=== PATIENT | male | born 1965 | race Caucasian/White ===

== ENCOUNTER 2022-07-24 18:39 | Emergency (ER) | payer OTHER, SELFPAY ==
--- NOTE | ~2022-07-24 | US_ITS ---
EXAMINATION: US VENOUS ULTRASOUND WITH DOPPLER LOWER EXTREMITY, RIGHT CLINICAL INFORMATION: Right lower extremity pain COMPARISON: None available. TECHNIQUE: Ultrasound of the deep veins is performed from the hip to the calf with compression sonography and color and pulse Doppler assessment. Spectral analysis with color-flow imaging is performed. FINDINGS: There is normal venous compression and respiratory variation and augmented flow. The visualized common femoral vein, superficial femoral vein, profunda femoral vein, popliteal vein, and the trifurcation region shows no evidence of deep venous thrombosis. There is no significant popliteal fossa cyst. Compressible superficial varicosities are seen on the ochoa. If the patient's symptoms persist, followup ultrasound in 5 days 7 days might be of value to exclude proximal propagation from a non-visualized calf vein. US/US venous duplex LE RT IMPRESSION: No DVT demonstrated in the right lower extremity.
[2022-07-24 19:53] VITALS: BP 153/81; PULSE 77; RESP 18; TEMP 36.6; O2SAT 97; BMI 32.8
--- NOTE | 2022-07-24 20:00 | ED.GENADULT ---
HPI - General Adult General Chief complaint: General Medical <Luis Schilling - Last Filed: 07/24/22 20:01> Stated complaint: Right leg swelling sent PC <Luis Schilling - Last Filed: 07/24/22 20:01> Time Seen by Provider: 07/25/22 00:09 <Luis Schilling - Last Filed: 07/24/22 20:01> Source: patient <Clemencia Jane NP - Last Filed: 07/25/22 00:24> Mode of arrival: ambulatory <Clemencia Jane NP - Last Filed: 07/25/22 00:24> Limitations: no limitations <Clemencia Jane NP - Last Filed: 07/25/22 00:24> History of Present Illness HPI narrative: 57-year-old male presents for anterior right lower extremity swelling and knee pain. States this occurred while he was exercising, and could not sleep because of the pain. <Clemencia Jane NP - Last Filed: 07/25/22 00:24> Onset (ago): day(s) (1) <Clemencia Jane NP - Last Filed: 07/25/22 00:24> Location: right and lower extremity <Clemencia Jane NP - Last Filed: 07/25/22 00:24> Radiation: non-radiation <Clemencia Jane NP - Last Filed: 07/25/22 00:24> Severity: mild <Clemencia Jane NP - Last Filed: 07/25/22 00:24> Severity scale (1-10): 4 <Clemencia Jane NP - Last Filed: 07/25/22 00:24> Quality: aching <Clemencia Jane NP - Last Filed: 07/25/22 00:24> Pain Consistency: constant <Clemencia Jane NP - Last Filed: 07/25/22 00:24> Relieving factors: rest <Clemencia Jane NP - Last Filed: 07/25/22 00:24> Exacerbating factors: movement and other (Palpation) <Clemencia Jane NP - Last Filed: 07/25/22 00:24> Associated symptoms: denies other symptoms <Clemencia Jane NP - Last Filed: 07/25/22 00:24> Treatments prior to arrival: none <Clemencia Jane NP - Last Filed: 07/25/22 00:24> Related Data Allergies/adverse reactions: Allergies Allergy/AdvReac Type Severity Reaction Status Date / Time No Known Allergies Allergy Verified 07/24/22 19:59 <Luis Schilling - Last Filed: 07/24/22 20:01> Review of Systems Review of Systems: Constitutional: No Fever, No Chills Cardiovascular: No Chest Pain, No SOB Respiratory: No Cough, No Dyspnea Musculoskeletal: positive right lower extremity pain, No Myalgias, No Joint Swelling Skin: No Skin lacerations, No rash Neuro: No Weakness, No Numbness, No Paresthesias <Clemencia Jane NP - Last Filed: 07/25/22 00:24> Yes all other systems are reviewed and are negative <Clemencia Jane NP - Last Filed: 07/25/22 00:24> [facility] Past Medical History Attestation statement: The following information was validated with the patient. <Clemencia Jane NP - Last Filed: 07/25/22 00:24> Source: old records reviewed <Clemencia Jane NP - Last Filed: 07/25/22 00:24> Social History Social History: Social History Advance Directives: No <Luis Schilling - Last Filed: 07/24/22 20:01> Physical Exam ED Vital Signs: Vital Signs - 24 hr 07/24/22 19:53 Temperature 97.9 F Pulse Rate 77 Respiratory Rate 18 Blood Pressure 153/81 H Pulse Oximetry 97 Oxygen Delivery Method Room Air BMI result Body Mass Index 32.8 <Luis Schilling - Last Filed: 07/24/22 20:01> Vital Signs - 24 hr 07/24/22 19:53 Temperature 97.9 F Pulse Rate 77 Respiratory Rate 18 Blood Pressure 153/81 H Pulse Oximetry 97 Oxygen Delivery Method Room Air BMI result Body Mass Index 32.8 <Clemencia Jane NP - Last Filed: 07/25/22 00:24> Appearance: Alert. Oriented X3. No acute distress. Eyes: Pupils equal, round and reactive to light. Neck: Normal inspection. Neck supple. CVS: Normal heart rate and rhythm. Pulses normal. Respiratory: No respiratory distress. Breath sounds normal. Skin: Skin warm and dry. Normal skin color. Normal skin turgor. Extremities: No lower extremity edema. Varicosity noted to the medial aspect of the lower right extremity. Negative Homans bilaterally. Gait balance and coordinated. Neuro: No motor deficit. No sensory deficit. Cranial nerves 2-12 intact <Clemencia Jane NP - Last Filed: 07/25/22 00:24> Course Course Course Narrative: 57-year-old male presents for evaluation of atraumatic right leg pain and swelling. He reports returning from [place] 2 weeks ago. His pain has been present for 3 weeks.. He reports that he started walking again last week. His pain started before his increase in exercise. His pain is mostly on the front of his right ochoa. He reports a history of varicose veins. Plan for ultrasound of the right lower extremity to evaluate for DVT especially given the recent flight <Luis Schilling - Last Filed: 07/24/22 20:01> 57-year-old male presents for evaluation of atraumatic right leg pain and swelling. He reports returning from [place] 2 weeks ago. His pain has been present for 3 weeks.. He reports that he started walking again last week. His pain started before his increase in exercise. His pain is mostly on the front of his right ochoa. He reports a history of varicose veins. Plan for ultrasound of the right lower extremity to evaluate for DVT especially given the recent flight 00:00 57-year-old male presents for right lower extremity swelling and pain. Provider in triage order duplex study which was negative for acute findings. Physical exam indicates bulging consistent with varicosity to right lower extremities. Also noted varicosities to the left medial aspect of the lower extremity. No edema noted. Patient is ambulatory. Patient does have follow-up with his primary care physician as well as a vein clinic physician. Patient was encouraged to keep these appointments supportive measures with Tylenol and Motrin. Patient verbalized understanding of discharge instructions. Verbalized understandings of signs and symptoms indicating need for emergent intervention. <Clemencia Jane NP - Last Filed: 07/25/22 00:24> Medical Decision Making Differential Diagnosis Differential Diagnoses: The differential diagnosis associated with the presentation includes <LISA Lowe Last Filed: 07/25/22 00:24> DVT, cellulitis, paresthetica meralgia, varicosity, hematoma <Clemencia Jane NP - Last Filed: 07/25/22 00:24> Independent Interpretation I performed an independent interpretation of an: Ultrasound <Clemencia Jane NP - Last Filed: 07/25/22 00:24> Radiology Impression Discussion of test interpretation with radiology: I have reviewed the radiologist's reading. <LISA Lowe Last Filed: 07/25/22 00:24> Radiologist Impression: TECHNIQUE: Ultrasound of the deep veins is performed from the hip to the calf with compression sonography and color and pulse Doppler assessment. Spectral analysis with color-flow imaging is performed. FINDINGS: There is normal venous compression and respiratory variation and augmented flow. The visualized common femoral vein, superficial femoral vein, profunda femoral vein, popliteal vein, and the trifurcation region shows no evidence of deep venous thrombosis. ? There is no significant popliteal fossa cyst. Compressible superficial varicosities are seen on the ochoa. If the patient's symptoms persist, followup ultrasound in 5 days 7 days might be of value to exclude proximal propagation from a non-visualized calf vein. US/US venous duplex LE RT IMPRESSION: No DVT demonstrated in the right lower extremity. <Clemencia Jane NP - Last Filed: 07/25/22 00:24> External Record Review Patient has no prior records at this facility <LISA Lowe Last Filed: 07/25/22 00:24> Prescription Management I considered prescription management with: Pain Medication <Clemencia Jane NP - Last Filed: 07/25/22 00:24> Chronic Conditions Patient?s care impacted by: Diabetes and Hypertension <Clemencia Jane NP - Last Filed: 07/25/22 00:24> Discharge Plan Discharge Clinical Impression: Varicose veins of bilateral lower extremities with pain <Luis Schilling - Last Filed: 07/24/22 20:01> Patient Disposition: Home, Self-Care <Luis Schilling - Last Filed: 07/24/22 20:01> Instructions: Leg Pain (ED) <Luis Herrmann Filed: 07/24/22 20:01> Additional Instructions: You were evaluated for leg pain. DVT study is negative. Physical exam is consistent with varicose veins. Please keep your appointment with your vein clinic physician for evaluation. Follow-up with primary care physician as scheduled. Alternate Tylenol 650 mg every 6 hours and Motrin 600 mg every 6 hours as needed for pain and fever management. Consider taking these medications 3 hours apart so you have pain and fever management every 3 hours. Write down what time you take these medications to prevent accidental overdose. Motrin is the same medication as Advil and ibuprofen. Tylenol is the same medication as acetaminophen. Thank you for choosing this emergency department for evaluation. Please follow-up with primary care physician as needed. Return to the emergency department for any new, concerning, or worsening symptoms. <Luis Schilling - Last Filed: 07/24/22 20:01> Referrals: Albaro Thurston MD [Primary Care Provider] - 2 weeks (Varicose vein, leg pain) <Luis Schilling - Last Filed: 07/24/22 20:01>
--- OUTSIDE RECORDS SUMMARY | 2022-07-25 00:06 | XMS_ITS | Continuity of Care Document ---
:1965 Author Organization [facility] Address [address] [place] [id number]- Care Team Providers Name Role Phone Daryl KNAPP, Justus S Primary Care Physician Encounter [facility] Date(s): 04/19/19 - 04/19/[address] [address]- [facility] Attending Physician: Bertrand KNAPP, Lexis Erwin Allergies, Adverse Reactions, Alerts Substance Reaction Severity Status Bee Stings Active Medications aspirin 81 mg oral delayed release tablet 81 mg, By Mouth, Daily, # 30 tablet, Refills 0, Tot. Refills 0, Maintenance, 03/19/16 8:00:19, [facility] Electronically, [id number], [facility] Start Date: 03/19/16 Status: Orderedatorvastatin 20 mg oral tablet 1 tablet = 20 mg, By Mouth, Daily, # 30 tablet, 0 Refills, Maintenance, Tablet Start Date: 03/18/16 Status: OrderedmetFORMIN 1000 mg oral tablet 1 tablet = 1,000 mg, By Mouth, 2 times a day, 0 Refills, Maintenance, 03/17/16 17:30:32 Start Date: 03/17/16 Status: Ordered
--- OUTSIDE RECORDS SUMMARY | 2022-07-25 00:06 | XMS_ITS ---
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 505303294 (current) use of insulin Problem Male erectile N52.9 Active 190178 002 dysfunction, unspecified Problem Type 2 diabetes E11.9 Active 3134 55460 mellitus without complications Problem Right lower R10.31 Active 78138790 2 quadrant pain Problem Body mass index Z68.35 Active 4433 32644153795 (BMI) 35.0-35.9, adult 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 Problem Body mass index Z68.33 Active 4433 01894132831 (BMI) 33.0-33.9, adult Problem Body mass index Z68.32 Active 4433 03143401898 (BMI) 32.0-32.9, adult ALLERGIES No Known Allergies ENCOUNTERS Encounter Location Date Diagnosis [address] Mar, [place] [address] Feb, [place], [place] [address] Jan, Acute ri ght-sided low back PC RENEE Panda pain without sci atica M54.50 ; Type 2 diabetes mellitus without complications E1 1.9 ; senior care (current) u se of insulin Z79.4 an d Primary hypertension I10 [address] Jan, [place] [facility] [address] [facility] September, [place], [place] [address] September, Type 2 d iabetes mellitus [place] with unspecified complications E1 1.8 and Essential (prima ry) hypertension I10 [address] Aug, 2021 [place] [facility] [address] [facility] Aug, 2021 [place], [place] [address] Aug, Bitten o r stung by [place] nonvenomous inse ct and other nonvenomou s arthropods, init ial encounter W57.XX XA [address] Aug, Viral in fection B34.9 [place], [place] [address] Mar, [place], [place] [address] Feb, Hyperten an, unspecified [place] type I10 [facility] [address] [facility] Feb, [place] [facility] [address] [facility] Feb, [place] [address] 13 Feb, 2021 Body mas s index (BMI) PC [place] 32.0-32.9, adult Z68.32 ; Type 2 diabetes mellitus with unspecified complications E1 1.8 and Dietary counseli ng and surveillance Z71 .[address] Feb, [place], [place] [address] Feb, Padilla's p alsy G51.0 ; Type 2 PC [place], [place] diabetes mellitu s with unspecified comp lications E11.8 and Snorin g R06.[address] Feb, [place], [place] [address] Feb, [place] [address] Feb, [place], [place] [address] Jan, Type 2 d iabetes mellitus [place], [place] with unspecified complications E1 1.8 ; Essential (prima ry) hypertension I10 ; Body mass index (BMI) 33.0-33.9, adult Z68.33 and Dietary counseling and s urveillance Z71.[address] Jan, [place] [address] Jan, Type 2 d iabetes mellitus [place], [place] with unspecified complications E1 1.8 ; Essential (prima ry) hypertension I10 ; Body mass index (BMI) 33.0-33.9, adult Z68.33 ; D ietary counseling and s urveillance Z71.3 and Exerci se counseling Z71.[address] Dec, Type 2 d iabetes mellitus [place] with unspecified [address] complications E1 1.8 ; Essential (prima ry) hypertension I10 ; Body mass index (BMI) 34.0-34.9, adult Z68.34 ; S noring R06.83 and Dieta ry counseling and s urveillance Z71.[address] Nov, [place], [place] [address] September, Bitten o r stung [place] [phone] other nonvenomou s arthropods, init ial encounter W57.XX XA [address] September, Bitten o r stung [place] [phone] other nonvenomou s arthropods, init ial encounter W57.XX XA [address] Jul, [place] [address] Jul, [place] [address] Apr, [place] [address] Apr, Type 2 d iabetes mellitus [place] with [place] [address] complications E1 1.8 ; Essential (prima ry) hypertension I10 and Dietary counseli ng and surveillance Z71 .[address] Apr, Type 2 d iabetes mellitus [place] with unspecified [address] complications E1 1.8 and Padilla's palsy G51 .[address] Dec, Type 2 d iabetes mellitus PC [place] with unspecified [address] complications E1 1.8 ; Body mass index (BMI) 34.0-34.9, adult Z68.34 ; D ietary counseling and s urveillance Z71.3 and Male e rectile dysfunction, uns pecified N52.[address] Jul, RENEE PANDA [address] Jul, [place] [address] Jul, Type 2 d iabetes mellitus PC [place] with unspecified [address] complications E1 1.8 ; Body mass index (BMI) 34.0-34.9, adult Z68.34 ; D ietary counseling and s urveillance Z71.3 and Padilla's palsy G51.[address] Jul, [place], [place] [address] Jul, [place] [address] Jul, [place], [place] [address] Jun, [place] [address] Jun, [place] [address] Jun, Type 2 d iabetes mellitus PC [place] with unspecified complications E1 1.8 ; Body mass index (BMI) 34.0-34.9, adult Z68.34 ; M john erectile dysfunc tion, unspecified N52. 9 and Dietary counseli ng and surveillance Z71 .[address] Jun, [place] [address] Jun, Type 2 d iabetes mellitus PC [place] with unspecified complications E1 1.8 ; Essential (prima ry) hypertension I10 ; Male erectile dysfunc tion, unspecified N52. 9 and Dietary counseli ng and surveillance Z71 .[address] Dec, [place], [place] [address] Dec, [place], [place] [address] Dec, Type 2 d iabetes mellitus [place] with unspecified complications E1 1.8 ; Body mass index (BMI) 34.0-34.9, adult Z68.34 and Right lower quadrant p ain R10.[address] Nov, [place] [address] Nov, [place] [facility] [address] [facility] Nov, Body mas s index (BMI) [place] 34.0-34.9, adult Z68.34 ; Frequency of bessy turition R35.0 ; Male ere ctile dysfunction, uns pecified N52.9 ; Right lo wer quadrant pain R1 0.31 ; Type 2 diabetes melli tus with unspecified comp lications E11.8 and Dietar y counseling and s urveillance Z71.3 IMMUNIZATIONS Vaccine Route Administration Date Status COVID 19 Pfizer Unknown August 24, 2020 Administered COVID 19 Pfizer Unknown August 01, 2020 Administered SOCIAL HISTORY Qualifiers Date Never Smoker REASON FOR REFERRAL FUNCTIONAL STATUS PLAN OF CARE Activity Details Future Appointment Provider Name:ARCENIO STEPHENSON , 2022-07-26 09:30:00 AM, [address] [place], [place], [address], Future Test CT Abdomen & Pelvis W/WO Con t [id number] Pending Test COMPREHENSIVE METABOLIC PANE L Pending Test HEMOGLOBIN A1C WITH EST GLUC OSE Pending Test LIPID PANEL Pending Test PSA, SCREEN Pending Test TESTOSTERONE, FREE AND TOTAL (MALES >15 YRS OLD) Pending Test TSH WITH REFLEX TO FT4 Pending Test LYME C6 ANTIBODY Pending Test TICK IDENTIFICATION Pending Test Lipid Panel Pending Test MICROALBUMIN,URINE Pending Test COMPREHENSIVE METABOLIC PANE L Pending Test psa Pending Test Hemoglobin A1C Pending Test CT Abdomen & Pelvis W Cont Pending Test Lipid Panel Pending Test MICROALBUMIN,URINE Pending Test COMPREHENSIVE METABOLIC PANE L Pending Test psa Pending Test URINALYSIS Pending Test Hemoglobin A1C VITAL SIGNS Temperature 97.4 degrees Fahrenheit 2022-01-21 Heart Rate 73 /min 2022-01-21 Heart Rate 80 /min 2021-02-21 Heart Rate 88 /min 2021-02-14 Heart Rate 72 /min 2021-02-07 Heart Rate 83 /min 2020-01-20 Heart Rate 84 /min 2020-01-06 Heart Rate 80 /min 2019-12-30 Heart Rate 85 /min 2019-04-20 Heart Rate 80 /min 2018-12-25 Heart Rate 71 /min 2018-07-14 Heart Rate 82 /min 2018-06-17 Heart Rate 80 /min 2018-06-05 Heart Rate 87 /min 2017-12-05 Heart Rate 67 /min 2017-11-27 Weight 239 lbs 2022-01-21 Weight 233.2 lbs 2021-02-14 Weight 231.9 lbs 2021-02-07 Weight 242 lbs 2020-01-20 Weight 236 lbs 2020-01-06 Weight 245.8 lbs 2019-12-30 Weight 239.5 lbs 2019-04-20 Weight 248.3 lbs 2018-12-25 Weight 245.9 lbs 2018-07-14 Weight 249 lbs 2018-06-17 Weight 249.5 lbs 2018-06-05 Weight 248.40 lbs 2017-12-05 Weight 248.00 lbs 2017-11-27 BMI 33.57 kg/m2 2022-01-21 BMI 32.75 kg/m2 2021-02-14 BMI 32.57 kg/m2 2021-02-07 BMI 33.99 kg/m2 2020-01-20 BMI 33.14 kg/m2 2020-01-06 BMI 34.52 kg/m2 2019-12-30 BMI 33.64 kg/m2 2019-04-20 BMI 34.87 kg/m2 2018-12-25 BMI 34.54 kg/m2 2018-07-14 BMI 34.97 kg/m2 2018-06-17 BMI 35.04 kg/m2 2018-06-05 BMI 34.89 kg/m2 2017-12-05 BMI 34.83 kg/m2 2017-11-27 Height 70.75 in 2022-01-21 Height 70.75 in 2021-02-21 Height 70.75 in 2021-02-14 Height 70.75 in 2021-02-07 Height 70.75 in 2020-01-20 Height 70.75 in 2020-01-06 Height 70.75 in 2019-12-30 Height 70.75 in 2019-04-20 Height 70.75 in 2018-12-25 Height 70.75 in 2018-07-14 Height 70.75 in 2018-06-17 Height 70.75 in 2018-06-05 Height 70.75 in 2017-12-05 Height 70.75 in 2017-11-27 Respiratory Rate 14 /min 2020-01-20 Respiratory Rate 12 /min 2020-01-06 Respiratory Rate 16 /min 2019-12-30 Oximetry 97 % 2022-01-21 Oximetry 97 % 2021-02-07 Oximetry 96 % 2020-01-20 Oximetry 95 % 2019-04-20 Oximetry 96 % 2018-12-25 Oximetry 97 % 2018-07-14 Oximetry 95 % 2018-06-17 Oximetry 95 % 2018-06-05 Oximetry 93 % 2017-12-05 Oximetry 96 % 2017-11-27 Blood pressure systolic 180 mm Hg 2022-01-21 Blood pressure diastolic 80 mm Hg 2022-01-21 MEDICATIONS Medication Instructions Dosage Frequency Start End Duration Statu s Date Date Viagra 50 MG Orally Once a 1 tablet as 24h Jun, 30 day(s) Active day needed 2019 FreeStyle as directed Apr, days Active Cornelio 14 Day 2019 [place] - metFORMIN HCl Orally Twice a 1 tablet with a 12h Active 1000 MG day meal Lisinopril-hyd TAKE 1 TABLET BY Active roCHLOROthiazi MOUTH EVERY DAY de 20-25 MG Rosuvastatin TAKE 1 TABLET BY 90 Ac tive Calcium 10 MG MOUTH EVERY DAY tiZANidine HCl Orally Three 1 tablet as 8h Jan, 14 days Active 2 MG times a day needed 2021 Dexcom G6 as directed Feb, 30 days Active Transmitter - 2020 Jardiance 10 Orally Once a 1 tablet 24h 05 September, Acti ve MG day 2021 FreeStyle sc every 14 as directed Jan, 84 days Active Cornelio 2 Sensor days 2021 - FreeStyle Lite in vitro twice as directed to Jan, 30 days Active - daily check blood 2020 sugars daily Dx: E11.9 Tamiflu 75 MG Orally Twice a 1 capsule 12h Aug, 5 day(s) Not-Taki day 2021 ng BD Pen Needle DIRECTED TO 30 Act luis Short U/F 31G INJECT INSULIN X 8 MM DX: E11.9 ONCE DAILY Lisinopril 10 Orally Once a 1 tablet 24h Apr, 30 day(s) N ot-Taki MG day 2018 ng Lantus DIRECTED TO Active SoloStar 100 INJECT 24 UNITS UNIT/ML ONCE DAILY SUBCUTANEOUSLY Lidocaine 5 % Externally 1 patch remove 24h Jan, 30 days Active Once a day after 12 hours 2021 Alcohol Prep as directed for 24h Jun, 30 days Act luis 70 % use with 2018 injecting insulin Glimepiride 2 TAKE 1 TABLET 90 Acti ve MG ORALLY WITH BREAKFAST OR THE FIRST MAIN MEAL OF THE DAY ONCE A DAY FOR 30 DAYS PROCEDURES Procedure Date Ordered Result Body Site NO SHOW FEE Mar 11, 2022 GLUCOSE BLOOD TEST Jan 06, 2020 GLUCOSE BLOOD TEST Jan 20, 2020 RESULTS Name Result Date Reference Range CBC (COMPLETE BLOOD COUNT) 2021-09-04 ABS. NRBC 0.0 AUTOMATED NRBC 0.0 HCT 42.4 (40.5-50.0) HGB 14.3 (13.7-17.1) MCH 30.5 (27.0-34.0) MCHC 33.7 (33.0-37.0) MCV 90.4 (80.0-94.0) MPV 10.9 (9.4-12.4) PLT 153 (150-460) RBC 4.69 (4.70-6.10) RDW-SD 39.8 (<47.0) WBC 5.8 (4.0-11.0) COMPREHENSIVE METABOLIC PANEL 2021-09-04 AG RATIO 1.9 ALBUMIN 4.3 (3.4-4.8) ALK PHOS 66 (40-129) ALT 21 (0-41) ANION GAP 11 (4-17) AST 16 (0-40) BICARBONATE 27 (22-29) BILIRUBIN,TOTAL 1.0 (0-1.2) BUN 14 (6-20) CALCIUM 9.2 (8.6-10.5) CHLORIDE 102 (98-107) CREATININE 0.7 (0.7-1.2) ESTIMATED GFR CREATININE 107 GLUCOSE 213 (70-99) POTASSIUM 4.3 (3.6-5.2) SODIUM 140 (133-145) TOTAL PROTEIN 6.6 (6.2-8.2) HEMOGLOBIN A1C 2021-09-04 HEMOGLOBIN A1C 10.7 (4.0-5.6) LIPID PANEL 2021-09-04 CHOLESTEROL, TOTAL 143 (<200) HDL CHOL 26 (>39) LDL CHOLESTEROL, CALCULATED 85 (0-1 30) NON HDL CHOLESTEROL (CALC) 117 (<160 ) TRIGLYCERIDE 160 (<150) MICROALBUMIN, URINE 2021-09-04 MALB/CREAT RATIO Unable to calculate (0-20) MICRO-ALBUMIN <12.0 (<20) URINE CREAT FOR MICRO ALBUMIN 205.7 LYME AB W/REFLEX 2021-08-31 LYME AB W/REFLEX NEGATIVE (NEG) COMPREHENSIVE METABOLIC PANEL 2021-02-07 AG RATIO 2.1 ALBUMIN 4.8 (3.4-4.8) ALK PHOS 81 (40-129) ALT 22 (0-41) ANION GAP 10 (4-17) AST 18 (0-40) BICARBONATE 29 (22-29) BILIRUBIN,TOTAL 1.0 (0-1.2) BUN 22 (6-20) CALCIUM 9.6 (8.6-10.5) CHLORIDE 96 (98-107) CREATININE 0.8 (0.7-1.2) ESTIMATED GFR CREATININE 99 GLUCOSE 310 (70-99) POTASSIUM 4.4 (3.6-5.2) SODIUM 135 (133-145) TOTAL PROTEIN 7.1 (6.2-8.2) HEMOGLOBIN A1C WITH EST GLUCOSE 2021-02-07 ESTIMATED AVERAGE GLUCOSE 263 HEMOGLOBIN A1C 10.8 (4.0-5.6) LIPID PANEL 2021-02-07 CHOLESTEROL, TOTAL 147 (<200) HDL CHOL 41 (>39) LDL CHOLESTEROL, CALCULATED 70 (0-1 30) NON HDL CHOLESTEROL (CALC) 106 (<160 ) TRIGLYCERIDE 182 (<150) MICROALBUMIN, URINE 2021-02-07 MALB/CREAT RATIO 10.9 (0-20) MICRO-ALBUMIN 21.9 (<20) URINE CREAT FOR MICRO ALBUMIN 201.5 SARS-CoV-2 RNA, QUAL RT-PCR 2020-07-18 Note SARS-CoV-2 RNA, QUAL RT-PCR NOT DETECTED NOT DETECT COMPREHENSIVE METABOLIC PANEL 2019-12-30 AG RATIO 2.3 ALBUMIN 4.4 (3.4-4.8) ALK PHOS 85 (40-129) ALT 24 (0-41) ANION GAP 9 (4-17) AST 16 (0-38) BICARBONATE 30 (22-29) BILIRUBIN,TOTAL 0.5 (0-1.2) BUN 11 (6-20) CALCIUM 9.2 (8.6-10.5) CHLORIDE 103 (98-107) CREATININE 0.7 (0.7-1.2) EST GFR 121 EST GFR NON 104 GLUCOSE 248 (70-99) POTASSIUM 4.4 (3.6-5.2) SODIUM 142 (133-145) TOTAL PROTEIN 6.3 (6.2-8.2) HEMOGLOBIN A1C WITH EST GLUCOSE 2019-12-30 ESTIMATED AVERAGE GLUCOSE 258 HEMOGLOBIN A1C 10.6 (4.0-5.6) LIPID PANEL 2019-12-30 CHOLESTEROL, TOTAL 122 (<200) HDL CHOL 39 (>39) LDL CHOLESTEROL, CALCULATED 42 (0-1 30) NON HDL CHOLESTEROL (CALC) 83 (<160 ) TRIGLYCERIDE 203 (<150) MICROALBUMIN, URINE 2019-12-30 MALB/CREAT RATIO <6.3 (0-20) MICRO-ALBUMIN <12.0 (0-20) URINE CREAT FOR MICRO ALBUMIN 190.4 LYME AB W/REFLEX 2019-12-30 LYME AB W/REFLEX <0.91 ARTHROPOD IDENTIFICATION 2019-09-10 SPECIAL REQUESTS NONE DIRECT EXAM SPECIMEN SUBMITTED NOT INTACT. UNABLE TO PERFORM IDENTIFICATION. REPORT STATUS FINAL 09/14/2019 SPECIMEN DESCRIPTION OTHER TICK LYME C6 ANTIBODY 2019-04-19 LYME C6 ANTIBODY <0.91 HEMOGLOBIN A1C 2019-04-19 HEMOGLOBIN A1C 8.3 (4-6) COMPREHENSIVE METABOLIC PANEL 2018-06-17 ALBUMIN 3.9 3.2-5.0 ALK PHOS 74 42-121 ANION GAP 9 3-11 BILI,TOTAL 0.8 0.0-1.4 BUN 17 5-25 CALCIUM 8.8 8.5-10.5 CHLORIDE 104 96-110 CO2 24 21-32 CREAT 0.60 0.7-1.3 GLOMERULAR FILTRATION RATE > 60 GLUCOSE 265 70-100 POTASSIUM 4.4 3.5-5.5 SGOT 16 10-42 SGPT 28 10-60 SODIUM 137 133-145 TOTAL PROTEIN 7.0 6.0-8.0 LIPID PROFILE 2018-06-17 CHOLESTEROL 170 0-200 HDL CHOLESTEROL 35 >40 LDL CALCULATED 78 0-100 TC-HDLC RATIO 4.9 0-4.4 TRIGLYCERIDES 289 0-150 PROSTATIC SPECIFIC ANTIGEN SCR 2018-06-17 PROSTATIC SPECIFIC ANTIGEN SCR 1.1 0 .0-4.0 MICROALB/CREAT RATIO, RANDOM 2018-06-17 CREATININE, RANDOM URINE 141 MICROALB/CRE RATIO RANDOM 14.8 0.0-30 .0 MICROALBUMIN, RANDOM 21.0 0.0-29.0 GLYCOHEMOGLOBIN PROFILE 2018-06-05 ESTIMATED AVERAGE GLUCOSE 275 GLYCATED HEMOGLOBIN A1C 11.2 <6.5 MICROALB/CREAT RATIO, RANDOM 2018-06-05 CREATININE, RANDOM URINE 41 MICROALB/CRE RATIO RANDOM < 13.6 0.0-30 .0 MICROALBUMIN, RANDOM 5.6 0.0-29.0 REASON FOR VISIT leg issues, DM and Back pain, med review, online portal, 2 weeks f/u, back pain, schedule, cb request, cb request, labs, sick call, bp check. Pt's blood pressure was running high at home. He woke up feeling foggy, no other symptoms. Per Dr. stephenson-blood pressure is ok, CCR., Follow up hypertension, DM, hyperlipidemia. Pt given his lab results. He was told to increase his lantus to 40 units daily. He hasbeen doing 20 units daily, bells palsy, Pt is here for F/U, Patient is here for 1 week follow up on elevated sugars and hypertension and lab review., Patient is c/o elevated blood pressures. Pt. has been ranging 154-200 systolic and 84-119 diastolic. Pt. has also been experiencing headaches and difficulty sleeping., 3 month f/u, pt is here for a f/up on hypertension, diabetes, and review labs, 3 month f/u, pt is here for a f/up on hyperlipidemia, diabetes, and hypertension, pt is here for a f/up fora hospital trip for Apdilla's Palsy, 2 week and review labs, pt is here for a f/up on diabetes, 3 monthf/u, 1 month f/u, 1 week, review labs, Refills, pt is here for a f/up Insurance Providers [facility] Health Member Patient Patient Patient Patient Patient Subscriber Subscriber Subscriber Group Insurance Plan Plan Plan Plan ID Relationship Address Phone Name Date of ID Name Date of No Type Insurance Insurance Insurance Coverage to Subscriber Address Phone Name Dates UNITED [phone] UNITED self Javi [id number] [phone] [address] [facility] [address] [facility] [place] [address] BCBS of [phone] BCBS of self Javi [id number] [facility] [id number] [address] [facility] [address]
--- OUTSIDE RECORDS SUMMARY | 2022-07-25 00:07 | XMS_ITS ---
:1965 Author Care Team Providers Name Role Phone ARCENIO STEPHENSON MD Primary Care Provider [phone] Allergies Code Code System Name Reaction Severity Status Onset NKDA ? Medications Name Status Start Date Stop Date ? ? azithromycin 250 mg tablet Completed ? 03/31 TAKE 2 TABLETS BY MOUTH TODAY, THEN TAKE 1 TABLET DAILY FOR 4 D AYS BD Ultra-Fine Short Pen Needle 31 gauge x 5/16 Completed ? 03/31/2022 EVERY DAY WITH INSULIN benzonatate 100 mg capsule Completed ? 03/31 TAKE 1 CAPSULE BY MOUTH THREE TIMES A DAY NEEDED FOR 7 DAYS cephalexin 500 mg capsule Completed ? 2021 TAKE 1 CAPSULE EVERY 6 HOURS BY MOUTH ROUTE FOR 7 DAYS. glimepiride 2 mg tablet Completed ? 03/31/20 insulin admin supplies subcutaneous pen Completed ? 03/31/2022 Inject by subcutaneous route. lisinopril 20 mg-hydrochlorothiazide 25 mg tablet Active ? Not available TAKE 1 TABLET BY MOUTH EVERY DAY oseltamivir 75 mg capsule Completed ? 2021 TAKE 1 CAPSULE BY MOUTH TWICE A DAY FOR 5 DAYS Paxlovid 300 mg (150 mg x 2)-100 mg tablets in a dose pack (EUA) Active ? Not available TAKE 3 TABLETS BY MOUTH TWICE A DAY DIRECTED FOR 5 DAYS peg-electrolyte solution 420 gram oral solution Completed ? 03/31/2022 rosuvastatin 10 mg tablet Completed ? 2021 tizanidine 2 mg tablet Completed ? TAKE 1 TABLET BY MOUTH EVERY 8 HOURS NEEDED FOR PAIN Problems None recorded. Procedures None recorded. Results Lab Results Date Name Specimen Result Interpretation Description Value Range Status Address ? 03/31/2022 SARS CoV 2 RNA ? Result positive ? ? [facility]st [facility] (COVID-19), [place], [place]: [phone], [address] , Respiratory [place] Specimen Past Encounters Encounter Date Diagnosis Provider 03/31/2022 Suspected COVID-19; Covid-19 Pauloángel Mo tiffany Huddleston PA: [address], [place] [address], Ph. 01/23/2021 Cellulitis ALEKSANDRA Maddox : [address], [place] [address], Ph. Social History None recorded. Vaccine List Notes: Covid Vaccinated with Pfizer Plan of Care Reminders Provider Appointments None recorded. ? ? Lab None recorded. ? ? Referral None recorded. ? ? Procedures None recorded. ? ? Surgeries None recorded. ? ? Imaging None recorded. ? ? Vitals Blood Pressure 141/81 mm[Hg]
== END 2022-07-25 00:38 | disposition home or self-care (01) ==
PROVIDERS: Emergency Provider Emergency Medicine; PCP Hospitalist
DX: I83.813 Varicose veins of bilateral lower extremities with pain (principal); M79.89 Other specified soft tissue disorders; M79.604 Pain in right leg
CPT/HCPCS: 93971; 99284